=== PATIENT | male | born 1965 | race Caucasian/White ===

== ENCOUNTER 2017-07-23 16:11 | Emergency (ER) | payer BC, OTHER ==
[~2017-07-23] VITALS: Ht 180.3 cm; Wt 66.0 kg
[~2017-07-23 16:11] MED LIST: ATV1 PO; SOLI10TA2 PO
[2017-07-23 16:12] VITALS: TEMP 36.3; Ht 180.3 cm; Wt 66.0 kg
[2017-07-23] MEDS ORDERED: ONDANSETRON INJ 2 MG/ML 2 ML VIAL IV STA (16:20)
[2017-07-23] MEDS ORDERED: HYDROmorphone INJ 1 MG/ML SYR IV STA (16:20)
--- NOTE | 2017-07-23 16:44 | EMERGENCY ROOM VISIT NOTE ---
History Report prepared by Jimmy: Sherwin Castillo Under the Supervision of: Dr. Justus Hernández M.D. First contact with patient: 16:17 Chief Complaint: BACK PAIN Stated Complaint: BACK PAIN History of Present Illness The patient is a 51 year old male who presents to the Emergency Room with complaints of worsening right sided flank pain that began this afternoon at 1445 , 1.5 hours prior to arrival. The patient states that the pain started in the mid-right back and slowly worsened and migrated down to the right flank. The pain is now wrapping around the the right lower quadrant of the abdomen. He rates his current pain as a 9/10 in severity. He does have a history of kidney stones, but notes he has not had any imaging in years. Source of History: patient Onset: 1.5 hours [employer] Position: back (Right flank) Symptom Intensity: 9/10 Timing: worsening Associated Symptoms: + abdominal pain (Right lower quadrant) Review of Systems See HPI for pertinent positives & negatives. A total of 10 systems reviewed and were otherwise negative. Past Medical & Surgical Medical Problems: (1) History of kidney stones History of kidney stones Social History Drug Use: none Marital Status: Housing Status: lives with family Current/Historical Medications Scheduled Levothyroxine Sodium (Levothyroxine Sodium), 50 MCG PO DAILY Lisinopril (Lisinopril), 10 MG PO DAILY Ondasetron Odt (Zofran Odt), 4 MG SL Q6H Propranolol (Inderal), 40 MG PO QAM Solifenacin (Vesicare), 10 MG PO DAILY Tamsulosin Hcl (Flomax), 0.4 MG PO DAILY Scheduled PRN Alprazolam (Alprazolam), 0.25 MG PO TID PRN for Anxiety Oxycodone/Acetaminophen 5MG/325MG (Percocet 5MG/325MG), 1-2 TAB PO Q4H PRN for Pain Allergies Coded Allergies: No Known Allergies (Verified , 07/23/17) Physical Exam Vital Signs Date Time Temp Pulse Resp B/P (MAP) Pulse Ox O2 Delivery O2 Flow Rate FiO2 07/23/17 18:47 81 16 117/69 100 07/23/17 17:50 71 16 116/66 98 Room Air 07/23/17 17:08 68 18 122/74 97 Room Air 07/23/17 16:12 36.3 62 18 127/82 100 Physical Exam GENERAL: Awake, alert, pale and uncomfortable appearing. HENT: Normocephalic, atraumatic. Oropharynx unremarkable. EYES: Normal conjunctiva. Sclera non-icteric. NECK: Supple. No nuchal rigidity. FROM. No JVD. RESPIRATORY: Clear to auscultation. CARDIAC: Regular rate, normal rhythm. Extremities warm and well perfused. Pulses equal. ABDOMEN: Soft, non-distended. No tenderness to palpation. No rebound or guarding. No masses. RECTAL: Deferred. MUSCULOSKELETAL: Chest examination reveals no tenderness. The back is symmetrical on inspection without obvious abnormality. There is no CVA tenderness to palpation. No joint edema. LOWER EXTREMITIES: Calves are equal size bilaterally and non-tender. No edema. No discoloration. NEURO: Normal sensorium. No sensory or motor deficits noted. SKIN: No rash or jaundice noted. Medical Decision & Procedures ER Provider Diagnostic Interpretation: Radiology results as stated below per my review and radiologist interpretation: ABD/PELVIS WITHOUT FOR STONE CT DOSE: 342.94 mGy.cm HISTORY: Pain pt c/o Rt sided flank pain TECHNIQUE: Multiaxial CT images of the abdomen and pelvis were performed without the use of intravenous and oral contrast according to the standard department stone protocol. A dose lowering technique was utilized adhering to the principles of ALARA. COMPARISON STUDY: 03/24/2006 FINDINGS: The lung bases are clear. The unenhanced liver, gallbladder, spleen, pancreas, and adrenal glands are unremarkable. Several faint nonobstructing renal calcifications bilaterally. Interval development of mild right hydroureteronephrosis. 4 mm partially obstructing calculus at the L4 level of the lumbar spine on the right. No additional ureteral calcifications. Latter is midline. Nonobstructive bowel pattern. IMPRESSION: 1. 4 mm partially obstructing calculus mid right ureter approximately at the level of L4. 2. Several nonobstructing small renal calcifications bilaterally. 3. Otherwise negative study. The above report was generated using voice recognition software. It may contain grammatical, syntax or spelling errors. Electronically signed by: Lebron Tipton M.D. 07/23/2017 4:59 PM Dictated Date/Time: 07/23/2017 4:55 PM The status of this report is Signed. Draft = Not yet reviewed or approved by Radiologist. Signed = Reviewed and approved by Radiologist. Laboratory Results 07/23/17 16:33 Red Blood Count 4.80, Mean Corpuscular Volume 85.6, Mean Corpuscular Hemoglobin 29.6, Mean Corpuscular Hemoglobin Concent 34.5, Mean Platelet Volume 10.5, Neutrophils (%) (Auto) 73.7, Lymphocytes (%) (Auto) 15.6, Monocytes (%) (Auto) 6.4, Eosinophils (%) (Auto) 3.5, Basophils (%) (Auto) 0.6, Neutrophils # (Auto) 7.81, Lymphocytes # (Auto) 1.65, Monocytes # (Auto) 0.68, Eosinophils # (Auto) 0.37, Basophils # (Auto) 0.06 07/23/17 16:33 Test 07/23/17 16:33 07/23/17 17:50 White Blood Count 10.59 K/uL (4.8-10.8) Red Blood Count 4.80 M/uL (4.7-6.1) Hemoglobin 14.2 g/dL (14.0-18.0) Hematocrit 41.1 % (42-52) Mean Corpuscular Volume 85.6 fL (80-100) Mean Corpuscular Hemoglobin 29.6 pg (25-34) Mean Corpuscular Hemoglobin Concent 34.5 g/dl (32-36) Platelet Count 256 K/uL (130-400) Mean Platelet Volume 10.5 fL (7.4-10.4) Neutrophils (%) (Auto) 73.7 % Lymphocytes (%) (Auto) 15.6 % Monocytes (%) (Auto) 6.4 % Eosinophils (%) (Auto) 3.5 % Basophils (%) (Auto) 0.6 % Neutrophils # (Auto) 7.81 K/uL (1.4-6.5) Lymphocytes # (Auto) 1.65 K/uL (1.2-3.4) Monocytes # (Auto) 0.68 K/uL (0.11-0.59) Eosinophils # (Auto) 0.37 K/uL (0-0.5) Basophils # (Auto) 0.06 K/uL (0-0.2) RDW Standard Deviation 41.8 fL (36.4-46.3) RDW Coefficient of Variation 13.3 % (11.5-14.5) Immature Granulocyte % (Auto) 0.2 % Immature Granulocyte # (Auto) 0.02 K/uL (0.00-0.02) Anion Gap 8.0 mmol/L (3-11) Est Creatinine Clear Calc Drug Dose 76.2 ml/min Estimated GFR () 92.7 Estimated GFR (Non- 80.0 BUN/Creatinine Ratio 15.1 (10-20) Calcium Level 9.6 mg/dl (8.5-10.1) Total Bilirubin 0.7 mg/dl (0.2-1) Direct Bilirubin 0.2 mg/dl (0-0.2) Aspartate Amino Transf (AST/SGOT) 22 U/L (15-37) Alanine Aminotransferase (ALT/SGPT) 30 U/L (12-78) Alkaline Phosphatase 130 U/L (45-117) Total Protein 7.9 gm/dl (6.4-8.2) Albumin 4.4 gm/dl (3.4-5.0) Lipase 55 U/L (73-393) Urine Color YELLOW Urine Appearance CLEAR (CLEAR) Urine pH 5.5 (4.5-7.5) Urine Specific [place] 1.014 (1.000-1.030) Urine Protein NEG (NEG) Urine Glucose (UA) NEG (NEG) Urine Ketones TRACE (NEG) Urine Occult Blood 3+ (NEG) Urine Nitrite NEG (NEG) Urine Bilirubin NEG (NEG) Urine Urobilinogen NEG (NEG) Urine Leukocyte Esterase NEG (NEG) Urine WBC (Auto) 1-5 /hpf (0-5) Urine RBC (Auto) >30 /hpf (0-4) Urine Hyaline Casts (Auto) 0 /lpf (0-5) Urine Epithelial Cells (Auto) 0-5 /lpf (0-5) Urine Bacteria (Auto) NEG (NEG) Labs reviewed by ED physician. Medications Administered Medications (Trade) Dose Ordered Sig/Tasneem Route Start Time Stop Time Status Last Admin Dose Admin Hydromorphone HCl (Dilaudid Inj) 1 mg NOW STAT IV 07/23/17 16:20 07/23/17 16:22 DC 07/23/17 16:38 1 MG Ondansetron HCl (Zofran Inj) 4 mg NOW STAT IV 07/23/17 16:20 07/23/17 16:22 DC 07/23/17 16:38 4 MG Tamsulosin HCl (Flomax Cap) 0.4 mg NOW ONCE PO 07/23/17 17:15 07/23/17 17:16 DC 07/23/17 17:10 0.4 MG Ketorolac Tromethamine (Toradol Inj) 30 mg NOW STAT IV 07/23/17 17:02 07/23/17 17:03 DC 07/23/17 17:11 30 MG Sodium Chloride 1,000 ml @ 999 mls/hr Q1H1M STAT IV 07/23/17 17:02 07/23/17 18:02 DC 07/23/17 17:08 999 MLS/HR ED Course 1617: Past medical records reviewed. The patient was evaluated in room B2. A complete history and physical examination was performed. 1620: Ordered Zofran 4 mg IV, Dilaudid 1 mg IV. 1702: Ordered Sodium Chloride 1000 mL @ 999 mL/hr IV, Toradol 30 mg IV. 1715: Ordered Flomax 0.4 mg PO. 1828: Upon reexamination the patient is resting in bed. I discussed results and treatment plan with the patient. He verbalizes agreement and understanding. The patient is ready for discharge. Medical Decision Differential diagnosis: Etiologies such as renal colic, appendicitis, diverticulitis, mesenteric ischemia, aortic pathology, infections, inflammatory bowel disease, PUD, biliary pathology, UTI, as well as others were entertained. This is a 51-year-old male who presents the emergency department complaining of severe right-sided flank pain. Due to the nature of the patient's pain patient was sent for CAT scan of the abdomen and pelvis. This was concerning for a 4 mm stone. The patient does not have an elevation in his white blood cell count red blood cell count liver kidneys or lipase. After some time he was able to provide a urine sample. His pain was controlled with Dilaudid as well as Zofran and Toradol here in the emergency department he was given a liter fluid. I do believe that the patient is well enough that he can be safely discharged home. The patient will also be started on Flomax however I stressed to the patient if he develops any fevers or his pain is out of control he needs to return immediately to the emergency department. Patient and are in agreement with the treatment plan. Medication Reconcilliation Current Medication List: was not reviewed Blood Pressure Screening Patient's blood pressure: Normal blood pressure Impression Primary Impression: Kidney stone Scribe Attestation The scribe's documentation has been prepared under my direction and personally reviewed by me in its entirety. I confirm that the note above accurately reflects all work, treatment, procedures, and medical decision making performed by me. Departure Information Dispostion Home / Self-Care Prescriptions Ondasetron Odt (ZOFRAN ODT) 4 Mg Tab 4 MG SL Q6H for Nausea, #6 TAB Prov: Justus Hernández MD 07/23/17 Tamsulosin Hcl (FLOMAX) 0.4 Mg Cap 0.4 MG PO DAILY for 7 Days, #7 CAP Prov: Justus Hernández MD 07/23/17 Oxycodone/Acetaminophen 5MG/325MG (PERCOCET 5MG/325MG) Tab 1-2 TAB PO Q4H Y for Pain, #14 TAB Prov: Justus Hernández MD 07/23/17 Forms HOME CARE DOCUMENTATION FORM, IMPORTANT VISIT INFORMATION Patient Instructions My [facility] Additional Instructions Need to return if you develop severe abd pain or fevers Follow up with Dr Parra' office You received narcotic or benzodiazepene medication while in the emergency room today. This is an addictive medication that may cause drowziness as well as constipation. Do not drive, operate heavy machinery, or drink alcohol under the influence of this medication. Take 600 mg Ibuprofen every 6 hours Take Percocet for breakthrough pain Culture results are usually available in approx 48 hours You have been examined and treated today on an emergency basis only. This is not a substitute for, or an effort to provide, complete comprehensive medical care. It is impossible to recognize and treat all injuries or illnesses in a single emergency department visit. It is therefore important that you follow up closely with your PCP. Call as soon as possible for an appointment. Thank you for your time and consideration. I look forward to speaking with you again soon. Please don't hesitate to call us if you have any questions.
[2017-07-23 16:54] LABS: BASO % 0.6 %; BASO ABS # 0.06 K/uL (0-0.2); EOS % 3.5 %; EOS ABS # 0.37 K/uL (0-0.5); HEMATOCRIT 41.1 % (42-52); HEMOGLOBIN 14.2 g/dL (14.0-18.0); IG# 0.02 K/uL (0.00-0.02); LYMPH % 15.6 %; LYMPH ABS # 1.65 K/uL (1.2-3.4); MEAN CELL VOLUME 85.6 fL (80-100); MEAN CORPUSCULAR HEMOGLOBIN 29.6 pg (25-34); MEAN CORPUSCULAR HGB CONC 34.5 g/dl (32-36); MEAN PLATELET VOLUME 10.5 fL (7.4-10.4); MONO % 6.4 %; MONO ABS # 0.68 K/uL (0.11-0.59); NEUT % 73.7 %; NEUT ABS # 7.81 K/uL (1.4-6.5); PLATELET COUNT 256 K/uL (130-400); RED CELL DISTRIBUTION WIDTH CV 13.3 % (11.5-14.5); RED CELL DISTRIBUTION WIDTH SD 41.8 fL (36.4-46.3); WHITE BLOOD COUNT 10.59 K/uL (4.8-10.8)
[2017-07-23] MEDS ORDERED: SOLI10TA2 PO (17:00)
[2017-07-23] MEDS ORDERED: XNX25 PO (17:00)
[2017-07-23] MEDS ORDERED: LEVO50TA6 PO (17:00)
[2017-07-23] MEDS ORDERED: PROP20TA67 PO (17:00)
[2017-07-23] MEDS ORDERED: LISI-461 PO (17:00)
--- NOTE | 2017-07-23 17:01 | DIAGNOSTIC IMAGING REPORT ---
ABD/PELVIS WITHOUT FOR STONE CT DOSE: 342.94 mGy.cm HISTORY: Pain pt c/o Rt sided flank pain TECHNIQUE: Multiaxial CT images of the abdomen and pelvis were performed without the use of intravenous and oral contrast according to the standard department stone protocol. A dose lowering technique was utilized adhering to the principles of ALARA. COMPARISON STUDY: 03/24/2006 FINDINGS: The lung bases are clear. The unenhanced liver, gallbladder, spleen, pancreas, and adrenal glands are unremarkable. Several faint nonobstructing renal calcifications bilaterally. Interval development of mild right hydroureteronephrosis. 4 mm partially obstructing calculus at the L4 level of the lumbar spine on the right. No additional ureteral calcifications. Latter is midline. Nonobstructive bowel pattern. IMPRESSION: 1. 4 mm partially obstructing calculus mid right ureter approximately at the level of L4. 2. Several nonobstructing small renal calcifications bilaterally. 3. Otherwise negative study. The above report was generated using voice recognition software. It may contain grammatical, syntax or spelling errors. Electronically signed by: Lebron Tipton M.D. 07/23/2017 4:59 PM Dictated Date/Time: 07/23/2017 4:55 PM
[2017-07-23] MEDS ORDERED: KETOROLAC TROMETHAMINE 30 MG/ML VIAL IV STA (17:02)
[2017-07-23] MEDS ORDERED: SODIUM CHLORIDE 0.9% 1000ML 1,000 ML IV STA (17:02)
[2017-07-23 17:14] LABS: ALBUMIN 4.4 gm/dl (3.4-5.0); CALCIUM 9.6 mg/dl (8.5-10.1); CREATININE 1.07 mg/dl (0.60-1.40); POTASSIUM 4.3 mmol/L (3.5-5.1)
[2017-07-23] MEDS ORDERED: TAMSULOSIN HCL 0.4 MG CAP PO ONE (17:15)
[2017-07-23 17:16] LABS: TOTAL PROTEIN 7.9 gm/dl (6.4-8.2)
[2017-07-23] MEDS ORDERED: ONDA4TAB10 SL (18:29)
[2017-07-23] MEDS ORDERED: OXYC-57 PO (18:29)
[2017-07-23] MEDS ORDERED: TAMS0.4C38 PO (18:29)
[2017-07-23 18:47] VITALS: BP 117/69; PULSE 81; O2SAT 100
== END 2017-07-23 18:45 | disposition home or self-care (01) ==
LOC: C.EDB 16:11
DX: N20.0 Calculus of kidney (principal); Z79.899 Other long term (current) drug therapy; Z87.442 Personal history of urinary calculi